=== PATIENT | male | born 1965 | race Caucasian/White ===

== ENCOUNTER 2022-03-12 06:56 | Inpatient (IN) ==
[2022-03-12] MEDS ORDERED: Atropine 1 MG/ML INJ 1 ML VIAL IV PUSH PRN (07:28)
[2022-03-12] MEDS ORDERED: Lactated Ringers 1000 ml BAG 1,000 ML IV ONE ×2 (07:37→08:44)
[2022-03-12] MEDS ORDERED: Atropine 0.1 MG/ML 10 ml SYR (1 mg) ONE (07:38)
[2022-03-12] MEDS ORDERED: Atropine 0.1 MG/ML 10 ml SYR (1 mg) IV PUSH ONE (07:40)
[2022-03-12 08:02] LABS: ABS Basophils 0.1 10^3/ul (0-0.2); ABS Eosinophils 0.2 10^3/ul (0-0.6); ABS Lymphocytes 1.8 10^3/ul (1.0-4.8); ABS Monocytes 0.6 10^3/ul (0-0.8); ABS Neutrophils 4.2 10^3/ul (1.5-7.7); Eosinophil % 3.2 %; Hematocrit 44 % (42-52); Hemoglobin 15.7 g/dL (14.0-18.0); Mean Corpuscular HGB Conc 36 g/dL (31-36); Mean Corpuscular Hemoglobin 32 pg (27-31); Mean Corpuscular Volume 89 fL (80-94); Mean Platelet Volume 7.5 fL (7.4-10.4); Platelet Count 249 10^3/uL (150-450); Red Blood Count 4.99 10^6 /uL (4.18-5.48); Red Cell Distribution Width 13 % (10-15); White Blood Count 6.9 10^3/uL (3.5-10.8)
[2022-03-12 08:21] LABS: High Sens Troponin Baseline < 3 pg/mL (<20)
[2022-03-12 08:36] LABS: ALT 19 U/L (7-52); AST 21 U/L (13-39); Albumin 4.1 g/dL (3.2-5.2); Albumin/Globulin Ratio 2.1 (1-3); Alkaline Phosphatase 46 U/L (35-149); Anion Gap 9 mmol/L (2-11); Blood Urea Nitrogen 17 mg/dL (6-24); CO2 Carbon Dioxide 25 mmol/L (22-32); Calcium 9.1 mg/dL (8.6-10.3); Chloride 105 mmol/L (101-111); Glucose 126 mg/dL (70-100); Potassium 3.8 mmol/L (3.5-5.0); Sodium 139 mmol/L (135-145); Total Protein 6.1 g/dL (6.4-8.9); eGFR CKD-EPI 104.9 (>60)
[2022-03-12] MEDS ORDERED: Potassium Chlor 20 meq TAB.ER PO ONE (08:43)
[2022-03-12 08:48] LABS: TSH Ultra Thyroid Stim Horm 0.42 mcIU/mL (0.34-5.60)
[2022-03-12 09:07] LABS: C Reactive Protein < 1.00 mg/L (<8.01)
[2022-03-12 09:33] LABS: High Sensitivity Troponin 1 Hr < 3 pg/mL (<20)
[2022-03-12 10:07] LABS: Erythrocyte Sed Rate 0 mm/Hr (0-19)
[2022-03-12 11:05] LABS: Urine Appearance Clear; Urine Bilirubin Negative (Negative); Urine Blood Negative (Negative); Urine Color Yellow; Urine Glucose Negative (Negative); Urine Ketones Negative (Negative); Urine Nitrite Negative (Negative); Urine Protein Negative (Negative); Urine Specific Gravity 1.009 (1.002-1.030); Urine Urobilinogen Negative (Negative)
[2022-03-12] MEDS ORDERED: Enoxaparin 40 MG/0.4 ML SYR SUBCUT SCH (12:00)
[2022-03-12] MEDS ORDERED: Iohexol 350 (CONTRAST) 500 ML MDV IV ONE (13:22)
[2022-03-12] MEDS ORDERED: Atropine 0.1 MG/ML 10 ml SYR (1 mg) IV PUSH PRN ×3 (15:50→19:53)
[2022-03-13 03:14] LABS: ABS Eosinophils 0.2 10^3/ul (0-0.6); ABS Lymphocytes 1.4 10^3/ul (1.0-4.8); ABS Monocytes 0.6 10^3/ul (0-0.8); ABS Neutrophils 4.2 10^3/ul (1.5-7.7); Eosinophil % 3.6 %; Hematocrit 44 % (42-52); Hemoglobin 15.3 g/dL (14.0-18.0); Lymphocyte % 22.1 %; Mean Corpuscular HGB Conc 35 g/dL (31-36); Mean Corpuscular Hemoglobin 31 pg (27-31); Mean Corpuscular Volume 89 fL (80-94); Mean Platelet Volume 7.3 fL (7.4-10.4); Platelet Count 214 10^3/uL (150-450); Red Blood Count 4.93 10^6 /uL (4.18-5.48); Red Cell Distribution Width 13 % (10-15); White Blood Count 6.5 10^3/uL (3.5-10.8)
[2022-03-13 03:45] LABS: Calcium 8.9 mg/dL (8.6-10.3); Potassium 4.2 mmol/L (3.5-5.0); eGFR CKD-EPI 106.6 (>60)
[2022-03-13] MEDS ORDERED: Regadenoson 0.4 MG/5 ML SYRINGE ONE (08:07)
[2022-03-13] MEDS ORDERED: Influenza vaccine *QUAD* *2022-23* 0.5 ML SYRINGE IM ONE (09:00)
[2022-03-13 10:27] VITALS: BP 114/84
[2022-03-14 19:39] LABS: Anaplasma phagocytophilum Negative (Negative); B. miyamotoi PCR, B Negative (Negative); Babesia divergens/MO-1 Negative (Negative); Babesia ducani Negative (Negative); Ehrlichia chaffeensis Negative (Negative); Ehrlichia ewingii/canis Negative (Negative); Ehrlichia muris eauclairensis Negative (Negative)
[2022-03-16 16:27] LABS: Kappa Free Light Chain 1.56 mg/dL; Lambda Free Light Chain, S 1.37 mg/dL
[2022-03-17 00:29] LABS: Albumin 3.3 g/dL (3.4-4.7); Albumin/Globulin Ratio 1.29; Total Protein(PEP) 5.8 g/dL (6.3 - 7.9)
[2022-03-17 13:06] LABS: IgG Immunoblot Negative (Negative); IgM Immunoblot Positive (Negative)
== END 2022-03-13 11:47 | disposition home or self-care (01) | DRG 204 ==
LOC: ED 06:56 → EDHOLD 11:18 → ICU 13:37
PROVIDERS: ADMIT Internal Medicine Critical Care Medicine; ATTEND Internal Medicine Critical Care Medicine